=== PATIENT | male | born 1935 | race Caucasian/White ===

== ENCOUNTER 2021-04-06 10:47 | Inpatient (IN) ==
[2021-04-06 12:29] LABS: Basophils % 0.1 %; Eosinophils % 0.1 %; Hematocrit 48.5 % (37.5-50.1); Hemoglobin 15.5 g/dL (12.9-16.9); Immature Granulocytes % 0.4 % (0-4); Lymphocytes # 0.7 K/mcL (0.6-4.6); Lymphocytes % 5.1 %; Mean Corpuscular Hemoglobin 30.2 pg (28.0-33.3); Mean Corpuscular Volume 94.4 fL (83.0-100.0); Mean Platelet Volume 11.4 fL (9.4-12.4); Monocytes # 1.2 K/mcL (0.0-1.3); Monocytes % 9.3 %; Neutrophils # 11.2 K/mcL (1.6-8.9); Platelet Count 305 K/mcL (140-400); Red Blood Count 5.14 M/mcL (4.19-5.50); White Blood Count 13.2 K/mcL (4.3-11.1)
[2021-04-06] MEDS ORDERED: Isovue-370 500 ML BOTTLE IVP ONE (12:38)
[2021-04-06] MEDS ORDERED: 0.9 % Sodium Chloride 1,000 ML IV ONE ×2 (12:38→14:16)
[2021-04-06 13:06] LABS: Albumin 4.3 g/dL (3.5-5.7); Albumin/Globulin Ratio 1.2 (1.1-2.2); Bilirubin,Direct 0.4 mg/dL (0.0-0.2); Bilirubin,Indirect 0.7 mg/dL (0.0-1.0); Bilirubin,Total 1.1 mg/dL (0.3-1.0); Calcium 10.6 mg/dL (8.6-10.3); Globulin 3.7 g/dL (2.4-3.5); Magnesium 2.3 mg/dL (1.6-2.6); Potassium 3.7 mEq/L (3.5-5.1); Troponin I 0.06 ng/mL (< 0.04)
[2021-04-06 13:29] LABS: Influenza A PCR Negative (Negative); Influenza B PCR Negative (Negative); Resp. Syncytial Virus PCR Negative (Negative); SARS-CoV-2 by PCR (In House) Negative (Negative)
[2021-04-06] MEDS ORDERED: Piperacillin/Tazobactam 3.375 GM in 0.9 % Sodium Chloride Mini Bag 100 ML IVPB ONE (15:06)
[2021-04-06] MEDS ORDERED: Naloxone 0.4 MG/ML INJ IVP PRN (15:20)
[2021-04-06] MEDS: 0.9 % Sodium Chloride w KCl 20 MEQ/1,000 ML MLS IVC SCH (17:23)
[2021-04-06 20:30] LABS: Bilirubin,Urine Negative (Negative); Blood,Urine Trace (Negative); Clarity,Urine Clear (Clear); Color,Urine Yellow (Yellow); Glucose,Urine (UA) Normal (Normal); Hyaline Casts,Urine Few per lpf (None Seen); Ketones,Urine Negative (Negative); Leukocyte Esterase,Urine Negative (Negative); Mucus,Urine Few per lpf (None-Few); Nitrite,Urine Negative (Negative); PH,Urine 5.5 pH Units (5.0-8.0); Protein,Urine 70 mg/dL (Neg-Trace); RBC,Urine 0-3 per hpf (0-3); Squamous Epithelial Cell,Urine Few per hpf (None-Few); Urobilinogen,Urine Normal (Normal); WBC,Urine 0-3 per hpf (0-3)
[2021-04-06] MEDS: *HR* Metoprolol 5 MG/5 ML VIAL IVP SCH (20:31)
[2021-04-06] MEDS: Piperacillin/Tazobactam 3.375 GM in 0.9 % Sodium Chloride Mini Bag 100 ML IVPB SCH (23:42)
[2021-04-07] MEDS: 0.9 % Sodium Chloride w KCl 20 MEQ/1,000 ML MLS IVC SCH ×4 (03:24→19:36)
[2021-04-07] MEDS: *HR* Metoprolol 5 MG/5 ML VIAL IVP SCH ×5 (03:25→23:57)
[2021-04-07 03:56] LABS: Basophils % 0.2 %; Eosinophils % 0.2 %; Hemoglobin 14.5 g/dL (12.9-16.9); Immature Granulocytes % 0.3 % (0-4); Lymphocytes # 0.6 K/mcL (0.6-4.6); Lymphocytes % 9.6 %; Mean Corpuscular HGB Conc 31.5 g/dL (31.6-35.5); Mean Corpuscular Hemoglobin 29.8 pg (28.0-33.3); Mean Corpuscular Volume 94.5 fL (83.0-100.0); Mean Platelet Volume 11.5 fL (9.4-12.4); Monocytes % 16.7 %; Neutrophils # 4.3 K/mcL (1.6-8.9); Platelet Count 274 K/mcL (140-400); Red Blood Count 4.87 M/mcL (4.19-5.50); Red Cell Distribution Width 14.2 % (11.5-14.5); White Blood Count 5.9 K/mcL (4.3-11.1)
[2021-04-07 04:17] LABS: Albumin 3.9 g/dL (3.5-5.7); Albumin/Globulin Ratio 1.3 (1.1-2.2); Calcium 9.7 mg/dL (8.6-10.3); Globulin 3.1 g/dL (2.4-3.5); Potassium 3.5 mEq/L (3.5-5.1)
[2021-04-07] MEDS ORDERED: diazePAM 10 MG/2 ML SYRINGE IVP ONE (05:21)
[2021-04-07] MEDS: Piperacillin/Tazobactam 3.375 GM in 0.9 % Sodium Chloride Mini Bag 100 ML IVPB SCH ×3 (10:39→23:57)
[2021-04-07] MEDS ORDERED: 0.9 % Sodium Chloride 500 ML IVC ONE (11:55)
[2021-04-08 03:09] LABS: Basophils % 0.2 %; Eosinophils # 0.1 K/mcL (0.0-0.6); Eosinophils % 0.8 %; Hematocrit 43.1 % (37.5-50.1); Hemoglobin 14.1 g/dL (12.9-16.9); Immature Granulocytes % 0.6 % (0-4); Lymphocytes # 0.7 K/mcL (0.6-4.6); Lymphocytes % 10.5 %; Mean Corpuscular HGB Conc 32.7 g/dL (31.6-35.5); Mean Corpuscular Hemoglobin 30.3 pg (28.0-33.3); Mean Corpuscular Volume 92.7 fL (83.0-100.0); Monocytes # 1.2 K/mcL (0.0-1.3); Neutrophils # 4.7 K/mcL (1.6-8.9); Platelet Count 201 K/mcL (140-400); Red Blood Count 4.65 M/mcL (4.19-5.50); Red Cell Distribution Width 13.9 % (11.5-14.5); Segmented Neutrophils % 69.9 %; White Blood Count 6.7 K/mcL (4.3-11.1)
[2021-04-08 03:20] LABS: Alanine Aminotransferase 11 Units/L (7-52); Albumin 3.6 g/dL (3.5-5.7); Albumin/Globulin Ratio 1.2 (1.1-2.2); Alkaline Phosphatase 77 Units/L (34-104); Aspartate Amino Transferase 19 Units/L (13-39); BUN/Creatinine Ratio 39 (6-26); Blood Urea Nitrogen 51 mg/dL (8-23); Calcium 9.2 mg/dL (8.6-10.3); Carbon Dioxide 30 mEq/L (23-29); Chloride 101 mEq/L (98-107); Glucose 130 mg/dL (70-105); Osmolality,Calculated 307 (280-300); Sodium 141 mEq/L (136-145); Total Protein 6.6 g/dL (6.4-8.9); eGFR For African Americans > 60 (> 60); eGFR For Non-African Americans 52 (> 60)
[2021-04-08] MEDS: Ondansetron 4 MG/2 ML VIAL IVP PRN ×2 (04:10→13:50)
[2021-04-08] MEDS: *HR* Metoprolol 5 MG/5 ML VIAL IVP SCH ×3 (06:22→17:02)
[2021-04-08] MEDS: Piperacillin/Tazobactam 3.375 GM in 0.9 % Sodium Chloride Mini Bag 100 ML IVPB SCH ×2 (08:52→17:02)
[2021-04-08] MEDS: 0.9 % Sodium Chloride w KCl 20 MEQ/1,000 ML MLS IVC SCH (10:40)
[2021-04-08] MEDS ORDERED: Ipratropium/Albuterol Neb 3 ML IH PRN (20:45)
[2021-04-08] MEDS ORDERED: Ipratropium/Albuterol Neb 3 ML ONE (20:46)
[2021-04-09] MEDS: *HR* Metoprolol 5 MG/5 ML VIAL IVP SCH ×5 (01:13→23:52)
[2021-04-09] MEDS: 0.9 % Sodium Chloride w KCl 20 MEQ/1,000 ML MLS IVC SCH ×3 (01:13→20:46)
[2021-04-09] MEDS: Piperacillin/Tazobactam 3.375 GM in 0.9 % Sodium Chloride Mini Bag 100 ML IVPB SCH ×4 (01:14→23:52)
[2021-04-09 02:22] LABS: Basophils % 0.2 %; Eosinophils % 0.1 %; Hematocrit 44.8 % (37.5-50.1); Hemoglobin 14.2 g/dL (12.9-16.9); Immature Granulocytes % 0.6 % (0-4); Lymphocytes # 0.3 K/mcL (0.6-4.6); Lymphocytes % 3.5 %; Mean Corpuscular HGB Conc 31.7 g/dL (31.6-35.5); Mean Corpuscular Hemoglobin 30.1 pg (28.0-33.3); Mean Corpuscular Volume 95.1 fL (83.0-100.0); Monocytes # 0.4 K/mcL (0.0-1.3); Monocytes % 4.3 %; Neutrophils # 7.4 K/mcL (1.6-8.9); Platelet Count 226 K/mcL (140-400); Red Blood Count 4.71 M/mcL (4.19-5.50); Red Cell Distribution Width 13.8 % (11.5-14.5); Segmented Neutrophils % 91.3 %; White Blood Count 8.1 K/mcL (4.3-11.1)
[2021-04-09 02:41] LABS: Albumin 3.5 g/dL (3.5-5.7); Albumin/Globulin Ratio 1.3 (1.1-2.2); Bilirubin,Total 1.3 mg/dL (0.3-1.0); Globulin 2.7 g/dL (2.4-3.5); Potassium 4.1 mEq/L (3.5-5.1); Total Protein 6.2 g/dL (6.4-8.9)
[2021-04-09 03:02] LABS: Platelet Estimate Normal (Normal)
[2021-04-09] MEDS ORDERED: Perflutren Lipid Microsphere 1.3 ML in 0.9 % Sodium Chloride 8.7 ML IVP PRN ×2 (10:21→19:02)
[2021-04-09] MEDS ORDERED: *HR* Propofol 200 MG/20 ML VIAL IVP ONE ×2 (10:27→14:17)
[2021-04-09] MEDS ORDERED: *HR* Rocuronium Bromide 50 MG/5 ML VIAL ONE ×2 (10:28→14:20)
[2021-04-09] MEDS ORDERED: *HR* Succinylcholine 200 MG/10 ML VIAL IVP ONE ×2 (10:28→14:58)
[2021-04-09] MEDS ORDERED: Lidocaine -MPF 2% 5 ML VIAL ONE ×2 (10:30→11:17)
[2021-04-09] MEDS ORDERED: *HR* FentaNYL (PF) 100 MCG/2 ML VIAL ONE ×2 (10:30→14:17)
[2021-04-09] MEDS ORDERED: Albumin Human 5% 25.0 GM/500 ML IV.SOLN ONE (10:38)
[2021-04-09] MEDS ORDERED: Albuterol 2.5 MG/3 ML NEBULIZER IH PRN ×2 (11:10→19:02)
[2021-04-09] MEDS ORDERED: *HR* FentaNYL (PF) 100 MCG/2 ML VIAL IVP PRN ×2 (11:10→19:02)
[2021-04-09] MEDS ORDERED: Nitroglycerin 0.4 MG TAB.SUBL SL PRN ×2 (11:10→19:02)
[2021-04-09] MEDS ORDERED: *HR* Metoprolol 5 MG/5 ML VIAL IVP PRN ×2 (11:10→19:02)
[2021-04-09] MEDS ORDERED: Naloxone 0.4 MG/ML INJ IVP PRN ×3 (11:10→19:02)
[2021-04-09] MEDS ORDERED: Lidocaine -MPF 2% 2 ML VIAL ONE (14:20)
[2021-04-09] MEDS ORDERED: Lidocaine HCL 4 ML Topical Solution (Laryng-O-Jet Kit Sterile Pak) TP ONE (14:20)
[2021-04-09] MEDS ORDERED: *HR* Vasopressin 20 UNIT/ML VIAL ONE (14:49)
[2021-04-09] MEDS ORDERED: EPHEDrine 50 MG/ML VIAL ONE (15:40)
[2021-04-09] MEDS ORDERED: *HR* Magnesium Sulfate 1 GM/2 ML VIAL ONE (15:55)
[2021-04-09] MEDS ORDERED: Sugammadex Sodium 200 MG/2 ML VIAL IV ONE (16:33)
[2021-04-09] MEDS: *HR* Metoprolol 5 MG/5 ML VIAL IVP PRN ×5 (17:42→18:35)
[2021-04-09 18:17] LABS: Basophils % 0.1 %; Eosinophils % 0.3 %; Hematocrit 39.9 % (37.5-50.1); Immature Granulocytes % 0.5 % (0-4); Lymphocytes # 0.6 K/mcL (0.6-4.6); Lymphocytes % 6.3 %; Mean Corpuscular HGB Conc 31.3 g/dL (31.6-35.5); Mean Corpuscular Hemoglobin 30.3 pg (28.0-33.3); Mean Corpuscular Volume 96.6 fL (83.0-100.0); Mean Platelet Volume 11.2 fL (9.4-12.4); Monocytes # 0.5 K/mcL (0.0-1.3); Monocytes % 5.7 %; Neutrophils # 7.6 K/mcL (1.6-8.9); Platelet Count 185 K/mcL (140-400); Red Blood Count 4.13 M/mcL (4.19-5.50); Segmented Neutrophils % 87.1 %; White Blood Count 8.7 K/mcL (4.3-11.1)
[2021-04-09 18:19] LABS: Hemoglobin 12.5 g/dL (12.9-16.9)
[2021-04-09 18:37] LABS: Calcium 9.1 mg/dL (8.6-10.3); Potassium 3.7 mEq/L (3.5-5.1)
[2021-04-09 18:41] LABS: Platelet Estimate Normal (Normal)
[2021-04-09] MEDS ORDERED: Ondansetron 4 MG/2 ML VIAL IVP PRN (19:02)
[2021-04-09] MEDS ORDERED: Ipratropium/Albuterol Neb 3 ML IH PRN (19:02)
[2021-04-10 01:22] LABS: Basophils % 0.1 %; Eosinophils # 0.1 K/mcL (0.0-0.6); Eosinophils % 0.9 %; Hematocrit 39.8 % (37.5-50.1); Hemoglobin 12.3 g/dL (12.9-16.9); Immature Granulocytes % 0.4 % (0-4); Lymphocytes # 0.8 K/mcL (0.6-4.6); Lymphocytes % 7.4 %; Mean Corpuscular HGB Conc 30.9 g/dL (31.6-35.5); Mean Corpuscular Hemoglobin 30.9 pg (28.0-33.3); Mean Platelet Volume 11.5 fL (9.4-12.4); Monocytes # 0.5 K/mcL (0.0-1.3); Monocytes % 5.2 %; Platelet Count 186 K/mcL (140-400); Red Blood Count 3.98 M/mcL (4.19-5.50); White Blood Count 10.3 K/mcL (4.3-11.1)
[2021-04-10 01:32] LABS: Neutrophils # 8.9 K/mcL (1.6-8.9)
[2021-04-10 01:43] LABS: Alanine Aminotransferase 7 Units/L (7-52); Albumin 3.6 g/dL (3.5-5.7); Albumin/Globulin Ratio 1.4 (1.1-2.2); Alkaline Phosphatase 71 Units/L (34-104); Aspartate Amino Transferase 13 Units/L (13-39); BUN/Creatinine Ratio 33 (6-26); Bilirubin,Total 0.9 mg/dL (0.3-1.0); Blood Urea Nitrogen 45 mg/dL (8-23); Calcium 9.1 mg/dL (8.6-10.3); Carbon Dioxide 31 mEq/L (23-29); Chloride 114 mEq/L (98-107); Globulin 2.6 g/dL (2.4-3.5); Glucose 95 mg/dL (70-105); Osmolality,Calculated 319 (280-300); Potassium 3.7 mEq/L (3.5-5.1); Sodium 149 mEq/L (136-145); Total Protein 6.2 g/dL (6.4-8.9); eGFR For African Americans > 60 (> 60); eGFR For Non-African Americans 50 (> 60)
[2021-04-10 01:45] LABS: BUN/Creatinine Ratio 34 (6-26); Blood Urea Nitrogen 45 mg/dL (8-23); Calcium 9.2 mg/dL (8.6-10.3); Carbon Dioxide 31 mEq/L (23-29); Chloride 112 mEq/L (98-107); Glucose 93 mg/dL (70-105); Osmolality,Calculated 325 (280-300); Potassium 3.6 mEq/L (3.5-5.1); Sodium 152 mEq/L (136-145); eGFR For African Americans > 60 (> 60); eGFR For Non-African Americans 51 (> 60)
[2021-04-10 01:47] LABS: Platelet Estimate Normal (Normal)
[2021-04-10] MEDS: 0.9 % Sodium Chloride w KCl 20 MEQ/1,000 ML MLS IVC SCH (02:02)
[2021-04-10] MEDS: Potassium Chloride 20 MEQ in D5% in Water 1,000 ML IVC SCH ×2 (06:23→18:44)
[2021-04-10] MEDS: *HR* Metoprolol 5 MG/5 ML VIAL IVP SCH ×3 (06:23→18:05)
[2021-04-10] MEDS: Piperacillin/Tazobactam 3.375 GM in 0.9 % Sodium Chloride Mini Bag 100 ML IVPB SCH ×2 (08:33→18:04)
[2021-04-10 13:17] LABS: Blood Urea Nitrogen 43 mg/dL (8-23); Carbon Dioxide 31 mEq/L (23-29); Chloride 111 mEq/L (98-107); Glucose 164 mg/dL (70-105); Osmolality,Calculated 326 (280-300); Potassium 3.4 mEq/L (3.5-5.1); Sodium 151 mEq/L (136-145)
[2021-04-10 14:01] LABS: BUN/Creatinine Ratio 34 (6-26); eGFR For African Americans > 60 (> 60); eGFR For Non-African Americans 54 (> 60)
[2021-04-11] MEDS: *HR* Metoprolol 5 MG/5 ML VIAL IVP SCH ×2 (00:02→05:13)
[2021-04-11] MEDS: Piperacillin/Tazobactam 3.375 GM in 0.9 % Sodium Chloride Mini Bag 100 ML IVPB SCH ×2 (00:02→07:49)
[2021-04-11 02:25] LABS: Basophils % 0.2 %; Eosinophils # 0.4 K/mcL (0.0-0.6); Eosinophils % 3.2 %; Hematocrit 39.2 % (37.5-50.1); Hemoglobin 11.9 g/dL (12.9-16.9); Immature Granulocytes % 0.6 % (0-4); Lymphocytes # 1.1 K/mcL (0.6-4.6); Lymphocytes % 8.3 %; Mean Corpuscular HGB Conc 30.4 g/dL (31.6-35.5); Mean Corpuscular Hemoglobin 30.1 pg (28.0-33.3); Mean Corpuscular Volume 99.2 fL (83.0-100.0); Monocytes # 0.7 K/mcL (0.0-1.3); Monocytes % 5.2 %; Neutrophils # 10.9 K/mcL (1.6-8.9); Platelet Count 178 K/mcL (140-400); Red Blood Count 3.95 M/mcL (4.19-5.50); Red Cell Distribution Width 13.8 % (11.5-14.5); Segmented Neutrophils % 82.5 %; White Blood Count 13.2 K/mcL (4.3-11.1)
[2021-04-11] MEDS: Potassium Chloride 20 MEQ in D5% in Water 1,000 ML IVC SCH (03:20)
[2021-04-11 03:47] LABS: Sodium 139 mEq/L (136-145)
[2021-04-11 03:56] LABS: Alanine Aminotransferase 7 Units/L (7-52); Albumin 3.1 g/dL (3.5-5.7); Albumin/Globulin Ratio 1.2 (1.1-2.2); Alkaline Phosphatase 86 Units/L (34-104); Aspartate Amino Transferase 17 Units/L (13-39); BUN/Creatinine Ratio 24 (6-26); Bilirubin,Total 0.9 mg/dL (0.3-1.0); Blood Urea Nitrogen 26 mg/dL (8-23); Calcium 8.2 mg/dL (8.6-10.3); Carbon Dioxide 25 mEq/L (23-29); Chloride 103 mEq/L (98-107); Globulin 2.6 g/dL (2.4-3.5); Glucose 108 mg/dL (70-105); Osmolality,Calculated 293 (280-300); Potassium 3.6 mEq/L (3.5-5.1); Total Protein 5.7 g/dL (6.4-8.9); eGFR For African Americans > 60 (> 60); eGFR For Non-African Americans > 60 (> 60)
[2021-04-13] MEDS: Potassium Chloride 20 MEQ in D5% in Water 1,000 ML IVC SCH (09:07)
[2021-04-13 12:15] VITALS: O2SAT 93
[2021-04-13 15:56] LABS: Adenovirus Not Detected (Not Detect); Coronavirus 229E Not Detected (Not Detect); Coronavirus HKU1 Not Detected (Not Detect); Coronavirus NL63 Not Detected (Not Detect); Coronavirus OC43 Not Detected (Not Detect); Human Metapneumovirus Not Detected (Not Detect); Human Rhinovirus/Enterovirus Not Detected (Not Detect); Influenza A Subtype 2009 H1 Not Detected (Not Detect); Influenza B Not Detected (Not Detect); Parainfluenza Virus 1 Not Detected (Not Detect); SARS-CoV-2 Not Detected (Not Detect)
[2021-04-13 15:57] LABS: Bordetella Pertussis Not Detected (Not Detect); Chlamydophila pneumoniae Not Detected (Not Detect); Mycoplasma pneumoniae Not Detected (Not Detect); Parainfluenza Virus 2 Not Detected (Not Detect); Parainfluenza Virus 3 Not Detected (Not Detect); Parainfluenza Virus 4 Not Detected (Not Detect); Respiratory Syncytial Virus Not Detected (Not Detect)
[2021-04-13] MEDS ORDERED: *HR* Heparin 5,000 UNIT/ML VIAL SQ SCH (18:00)
[2021-04-13 21:52] VITALS: BP 124/58; PULSE 64; TEMP 98.4
== END 2021-04-13 22:48 | DRG 335 ==
LOC: 3ANU 10:47 → EMEROOARM 10:47 → 3ANU 18:38 → SUATTDRO 20:20
PROVIDERS: ADMIT Hospitalist; ATTEND Hospitalist